=== PATIENT | male | born 1985 | race Two or more races ===

== ENCOUNTER → 2020-04-17 | Outpatient (CLI) | payer OTHER ==
[2015-10-30 01:45] VITALS: BP 144/72
[~2020-04-17] MED LIST: DIPH25CA58 PO; EPIPEN 2-P0.3 MG/0.3 IJ; PRED50TA PO
--- NOTE | 2020-04-17 15:29 | KCIC ---
INDICATION: Reason: RT ANTERIOR LOWER RIB PAIN 3 WEEKS WHILE SITTING, NO INJURY / Spl. Instructions: / History: COMPARISON: None. FINDINGS: 2 view of chest obtained. Degenerative changes the spine. No focal airspace consolidation or pulmonary edema. Cardiac silhouette is unremarkable. IMPRESSION: * No focal airspace consolidation or edema. Electronically signed by: Clif Hendricks MD (04/17/2020 3:26 PM) [id number]
== END ==
LOC: KCIC 12:43
PROVIDERS: ATTEND Family Medicine
DX: R07.81 Pleurodynia (principal)
CPT/HCPCS: 71046